=== PATIENT | female | born 1975 | race Caucasian/White ===

== ENCOUNTER 2023-06-28 12:44 | Outpatient (CLI) | payer OTHER, SELFPAY ==
--- NOTE | ~2023-06-28 | CT_ITS ---
EXAMINATION: CT abdomen pelvis wo con DATE: 06/28/2023 13:20 INDICATION: Right kidney stone TECHNIQUE: Computed tomography (CT) of the abdomen and pelvis was performed without intravenous contr ast. Automated exposure control and iterative reconstruction technique were employed. Exam dose: 181 .85 mGy-cm total exam DLP. COMPARISON: 06/2023 KUB FINDINGS: The lung bases are clear. Normal heart size. No pericardial or pleural effusion. Status post bilateral augmentation mammoplasty. The liver, gallbladder, bile ducts, pancreas, pancreatic duct are unremarkable. Multiple splenic calc ified granulomas consistent with old granulomatous disease. No splenomegaly. Normal morphology of the adrenal glands. 2.2 cm right renal cyst. 5 mm and 5.4 mm nonobstructing right renal calculi. No ureteral calculus or hydroureteronephrosis. There is a small locule of gas in the urinary bladder but the bladder is otherwise unremarkable. No bladder wall thickening. Status post hysterectomy. Diverticulosis of the colon; no CT evidence of diverticulitis. No bowel obstruction, bowel wall thick ening, pneumatosis or intraperitoneal free air is detected. There is atherosclerotic calcification but normal caliber of the abdominal aorta and iliac arteries. No intraperitoneal or retroperitoneal or pelvic mass lesion or adenopathy or ascites is detected. No suspicious osteolytic or osteoblastic lesions are noted. Asymmetric prominent right hip osteoarthritis. IMPRESSION: Status post bilateral augmentation mammoplasty 2.2 cm right renal cyst Nonobstructive right nephrolithiasis Status post hysterectomy Diverticulosis of the colon Reviewed, dictated and finalized at [facility]. Reviewed, dictated and finalized at location B.
--- NOTE | ~2023-06-28 | XR_ITS ---
EXAM: XR abdomen/kub 1V DATE: 06/28/2023 13:11 HISTORY: RIGHT KIDNEY STONE . COMPARISON: CT abdomen pelvis, same date. FINDINGS: Clear lung bases. Normal bowel gas pattern. No organomegaly. 5 and 4 mm calcifications pro ject over the right mid renal shadow. Scattered vascular calcifications. Moderate right hip osteoarth ritis. IMPRESSION: Right nephrolithiasis. Moderate right hip osteoarthritis. Reviewed, dictated and finalized at location K.
== END 2023-06-28 12:45 | disposition home or self-care (01) ==
LOC: ANHIMG 12:53
PROVIDERS: Visit Provider Nurse Practitioner Family
DX: N20.0 Calculus of kidney (principal); M16.11 Unilateral primary osteoarthritis, right hip; K57.30 Diverticulosis of large intestine without perforation or abscess without bleeding; N28.1 Cyst of kidney, acquired
CPT/HCPCS: 74018; 74176

== ENCOUNTER 2024-05-14 10:38 | Outpatient (CLI) | payer OTHER, SELFPAY ==
[2024-05-14 12:30] LABS: INR 0.9; Prothrombin Time 12.1 Seconds (11.1-14.7)
[2024-05-14 12:32] LABS: Partial Thromboplastin Time 25.8 Seconds (22.3-36.8)
== END 2024-05-14 10:39 | disposition home or self-care (01) ==
PROVIDERS: Visit Provider Urology
DX: N20.0 Calculus of kidney (principal); E78.00 Pure hypercholesterolemia, unspecified; Z01.818 Encounter for other preprocedural examination
CPT/HCPCS: 36415; 85610; 85730; 87086

== ENCOUNTER 2024-05-17 01:02 | Day surgery (SDC) | payer OTHER, SELFPAY ==
--- NOTE | 2024-03-27 07:32 | PM.HPGS ---
History of Present Illness History of Present Illness Consent: Risks, benefits, and alternatives have been discussed and questions answered. Patient agrees to proceed with procedure. Chief complaint: right renal stone Narrative: Karen Méndez is a 48 year old female who has undergone, for several months, evaluation by Dr. Hola Lamb and OLEG Lee for recurrent urinary tract infections and intermittent dysuria. Imaging in late [address] scan and KUB showed 2 calcified stones in her right kidney, each measuring approximately 5 mm. She elected to defer intervention until now. After discussion of options she is agreed to right ESWL. She is aware of the risks including, but not limited to, need for additional procedures to clear her stones, hematuria, perinephric hematoma. Review of Systems Review of Systems: All systems reviewed & are unremarkable except as noted in HPI and below PMFSH Past Medical History Medical History (Updated 12/21/23 @ 07:25 by Monty العلي MD) Constipation Encounter for screening colonoscopy GERD (gastroesophageal reflux disease) Lupus nephritis Social History Social History Smoking status: Unknown if ever smoked Meds Home Medications and Allergies Home Medications Medication Instructions Recorded Confirmed Type ascorbate calcium (vitamin C) 500 500 mg PO DAILY 12/12/23 12/12/23 History mg tablet aspirin 81 mg tablet,delayed 81 mg PO DAILY 12/12/23 12/12/23 History release (Adult Aspirin Regimen) biotin 5 mg tablet 5 mg PO DAILY 12/12/23 12/12/23 History cholecalciferol (vitamin D3) 25 25 mcg PO DAILY 12/12/23 12/12/23 History mcg (1,000 unit) capsule ezetimibe 10 mg tablet 10 mg PO DAILY 12/12/23 12/12/23 History lisinopril 5 mg tablet 5 mg PO DAILY 12/12/23 12/12/23 History mycophenolate mofetil 500 mg 500 mg PO Q12H 12/12/23 12/12/23 History tablet (CellCept) omeprazole 20 mg capsule,delayed 20 mg PO DAILY 12/12/23 12/12/23 History release plecanatide 3 mg tablet (Trulance) 3 mg PO DAILY 1 month #30 tabs 12/12/23 12/12/23 Rx prednisone 10 mg tablet 10 mg PO DAILY 12/12/23 12/12/23 History rosuvastatin 40 mg tablet 40 mg PO DAILY 12/12/23 12/12/23 History trazodone 50 mg tablet 50 mg PO QHS PRN 12/12/23 12/12/23 History turmeric 400 mg capsule mg PO 12/12/23 12/12/23 History valacyclovir 500 mg tablet 500 mg PO DAILY 12/12/23 12/12/23 History (Valtrex) vit B12 50 mcg-iodine 75 mcg-mag 50 cap PO .qod 12/12/23 12/12/23 History 100 [id number]-herb 193 capsule Allergies Allergy/AdvReac Type Severity Reaction Status Date / Time No Known Allergies Allergy Unverified 12/12/23 14:09 Exam Const: General: no acute distress Resp: Effort & Inspection: normal respiratory effort GI: Inspection: non-distended GI Palp: No abdominal tenderness and No Guarding due to palpation present (GI) Auscultation: normal bowel sounds Assessment and Plan Assessment and plan (1) Right kidney stone: Code(s): N20.0 - Calculus of kidney Status: Acute Assessment and Plan: Right ESWL
[2024-04-01 13:11] VITALS: BMI 25.6
--- NOTE | 2024-04-01 13:20 | PC.NURSE ---
Addendum entered by Bonnie Au RN 04/02/24 14:14: Pt aware not to take any more aspirin (pt had not taken a dose yet today). Original Note: Report to the Outpatient Waiting Room, entrance under the green pavilion located off [facility], at time _0800_ on date _[id number]_. Planned Procedure Time: _1000_. Time changes happen often and if your time is changed the preop area will call you the afternoon before. - You and your visitor will be asked to self-screen and do not enter if you have any COVID symptoms. - A mask is optional within the hospital at this time. Patients may have clear liquids (water, carbonated beverages, clear teas, apple juice) until 3 hours prior to surgery with a maximum of 20 ounces. - No food from midnight until time of surgery Take the following medications with a SIP of water the morning of surgery: __Prednisone DO NOT STOP ANY OF YOUR OTHER PRESCRIPTION MEDICATIONS PRIOR TO SURGERY ?EXCEPT THE FOLLOWING Medications to discontinue per physician All vitamins Date to take last [id number] Please no make-up, nail slovenian, hairspray, perfume, deodorant, or body powder the day of surgery. No jewelry (including any body piercings) or valuables the day of surgery, leave them at home. Please take a shower or bath the night before, or the morning of, surgery with an antibacterial soap. Wear comfortable, loose fitting clothing. - Jewelry must be removed prior to entering the operating room. Rings and piercings that are not removed may be cut off. - The hospital will not accept responsibility for valuables. - Please leave all valuables, including medications, at home the day of surgery. If you are going home after surgery, a licensed package delivery driver must drive you home. - NO public transportation without another adult if you receive anesthesia. - We recommend that an adult stay with you for 24 hours following discharge. - We also recommend that you do not drive, make important decision, drink alcoholic beverages, or take any drugs that were not prescribed by your health care provider for at least 24 hours after your discharge time. Follow any additional instructions given to you from your surgeon. If you or anyone in your household have experienced Covid symptoms in the past week, please notify your surgeon or the nurse liaison at the phone number below for possible testing. Telephone instructions given to _Karen__and asked if any additional questions and then verbalized understanding. Patient advised to call surgeon office or pre surgery nurse liaison [phone] if any additional questions.
--- NOTE | 2024-05-10 07:32 | PM.HPGS ---
History of Present Illness History of Present Illness Consent: Risks, benefits, and alternatives have been discussed and questions answered. Patient agrees to proceed with procedure. Chief complaint: right renal stone Narrative: Karen Méndez is a 48 year old female who has undergone, for several months, evaluation by Dr. Hola Lamb and OLEG Lee for recurrent urinary tract infections and intermittent dysuria. Imaging in late [address] scan and KUB showed 2 calcified stones in her right kidney, each measuring approximately 5 mm. She elected to defer intervention until now. After discussion of options she is agreed to right ESWL. She is aware of the risks including, but not limited to, need for additional procedures to clear her stones, hematuria, perinephric hematoma. This procedure has been put off a couple times for treatment of UTI Review of Systems Cardiovascular: Cardiovascular: Denies chest pain, Denies lightheadedness, Denies palpitations and Denies dyspnea Respiratory: Respiratory: Denies dyspnea Gastrointestinal: Gastrointestinal: Denies diarrhea, Denies nausea and Denies vomiting Genitourinary: Genitourinary: Denies hematuria and Denies dysuria Endocrine: Endocrine: Denies palpitations [facility] Past Medical History Medical History (Updated 12/21/23 @ 07:25 by Monty العلي MD) Constipation Encounter for screening colonoscopy GERD (gastroesophageal reflux disease) Lupus nephritis Social History Social History Smoking status: Never smoker Living arrangements: with family Spiritual care concerns: No Meds Home Medications and Allergies Home Medications Medication Instructions Recorded Confirmed Type ascorbate calcium (vitamin C) 500 500 mg PO DAILY 12/12/23 04/01/24 History mg tablet aspirin 81 mg tablet,delayed 81 mg PO DAILY 12/12/23 04/01/24 History release (Adult Aspirin Regimen) biotin 5 mg tablet 5 mg PO DAILY 12/12/23 04/01/24 History cholecalciferol (vitamin D3) 25 25 mcg PO DAILY 12/12/23 04/01/24 History mcg (1,000 unit) capsule ezetimibe 10 mg tablet 10 mg PO DAILY 12/12/23 04/01/24 History lisinopril 5 mg tablet 5 mg PO DAILY 12/12/23 04/01/24 History mycophenolate mofetil 500 mg 500 mg PO Q12H 12/12/23 04/01/24 History tablet (CellCept) omeprazole 20 mg capsule,delayed 20 mg PO DAILY 12/12/23 04/01/24 History release prednisone 10 mg tablet 10 mg PO DAILY 12/12/23 04/01/24 History rosuvastatin 40 mg tablet 40 mg PO DAILY 12/12/23 04/01/24 History turmeric 400 mg capsule 400 mg PO DAILY 12/12/23 04/01/24 History valacyclovir 500 mg tablet 500 mg PO DAILY 12/12/23 04/01/24 History (Valtrex) vit B12 50 mcg-iodine 75 mcg-mag 50 cap PO .qod 12/12/23 04/01/24 History 100 [id number]-xbsodbks-herb 193 capsule Lactobacillus acidophilus and 1 cap PO DAILY 04/01/24 04/01/24 History rhamnosus 15 billion cell capsule (Flor[employer]) Allergies Allergy/AdvReac Type Severity Reaction Status Date / Time No Known Allergies Allergy Verified 04/01/24 15:57 Exam Const: General: no acute distress Resp: Effort & Inspection: normal respiratory effort GI: Inspection: non-distended GI Palp: No abdominal tenderness and No Guarding due to palpation present (GI) Auscultation: normal bowel sounds Assessment and Plan Assessment and plan (1) Right kidney stone: Code(s): N20.0 - Calculus of kidney Status: Acute Assessment and Plan: Right ESWL
--- NOTE | 2024-05-13 09:49 | PC.NURSE ---
PT DENIES ANY CHANGE IN HEALTH OR MEDICATION, NEW INSTRUCTIONS GIVEN, PT DENIES ANY QUESTIONS.
--- NOTE | 2024-05-13 10:00 | PC.NURSE ---
Report to the Outpatient Waiting Room, entrance under the green pavilion located off [facility], at time _0700___ on date _05/17/24_. Planned Procedure Time: _0900_. Time changes happen often and if your time is changed the preop area will call you the afternoon before. - You and your visitor will be asked to self-screen and do not enter if you have any COVID symptoms. - A mask is optional within the hospital at this time. Patients may have clear liquids (water, carbonated beverages, clear teas, apple juice) until 3 hours prior to surgery with a maximum of 20 ounces. - No food from midnight until time of surgery - Infants may have breast milk until 4 hours before surgery, infant formula 6 hours prior to surgery. - Children will be allowed to drink immediately following surgery. If applicable, please bring a bottle or sippy cup to assist with drinking. Juice, water, soda, and popsicles are readily available. For infants on formula, please bring formula the day of surgery. Pacifiers are allowed. Take the following medications with a SIP of water the morning of surgery: PREDNISONE DO NOT STOP ANY OF YOUR OTHER PRESCRIPTION MEDICATIONS PRIOR TO SURGERY ?EXCEPT THE FOLLOWING Medications to discontinue per physician ____ALL VITAMINS AND SUPPLIMENTS Date to take last dose 05/14/24 STOP ASPIRIN 05/13/24 Please no make-up, nail turkmen, hairspray, perfume, deodorant, or body powder the day of surgery. No jewelry (including any body piercings) or valuables the day of surgery, leave them at home. Please take a shower or bath the night before, or the morning of, surgery with an antibacterial soap. Wear comfortable, loose fitting clothing. Children are encouraged to wear pajamas. - Jewelry must be removed prior to entering the operating room. Rings and piercings that are not removed may be cut off. - The hospital will not accept responsibility for valuables. - Please leave all valuables, including medications, at home the day of surgery. If you are going home after surgery, a licensed skidder driver must drive you home. - NO public transportation without another adult if you receive anesthesia. - We recommend that an adult stay with you for 24 hours following discharge. - We also recommend that you do not drive, make important decision, drink alcoholic beverages, or take any drugs that were not prescribed by your health care provider for at least 24 hours after your discharge time. For Pediatric surgeries, we recommend two adults accompany the child home. Follow any additional instructions given to you from your surgeon. If you or anyone in your household have experienced Covid symptoms in the past week, please notify your surgeon or the nurse liaison at the phone number below for possible testing. Telephone instructions given to PATIENT_and asked if any additional questions and then verbalized understanding. Patient advised to call surgeon office or pre surgery nurse liaison [phone] if any additional questions.
--- NOTE | 2024-05-16 12:15 | WPDANESEPPF ---
Anes - Initial Pre Proc Eval Procedure: Operation Date: 05/17/24 07:30 Proposed Procedures p Right Renal Extracorporeal Shock Wave Lithotripsy - Monty العلي MD Date/Time: 05/16/24 12:15 Surgeon: Monty العلي MD Pre Op Diagnosis: right renal stone Patient Data Age: 48 Gender: F Height: 1.63 m Weight: 67.7 kg Allergies Allergy/AdvReac Type Severity Reaction Status Date / Time No Known Allergies Allergy Verified 04/01/24 15:57 Home Medications Medication Instructions Recorded Confirmed Type ascorbate calcium (vitamin C) 500 500 mg PO DAILY 12/12/23 04/01/24 History mg tablet aspirin 81 mg tablet,delayed 81 mg PO DAILY 12/12/23 04/01/24 History release (Adult Aspirin Regimen) biotin 5 mg tablet 5 mg PO DAILY 12/12/23 04/01/24 History cholecalciferol (vitamin D3) 25 25 mcg PO DAILY 12/12/23 04/01/24 History mcg (1,000 unit) capsule ezetimibe 10 mg tablet 10 mg PO DAILY 12/12/23 04/01/24 History lisinopril 5 mg tablet 5 mg PO DAILY 12/12/23 04/01/24 History mycophenolate mofetil 500 mg 500 mg PO Q12H 12/12/23 04/01/24 History tablet (CellCept) omeprazole 20 mg capsule,delayed 20 mg PO DAILY 12/12/23 04/01/24 History release prednisone 10 mg tablet 10 mg PO DAILY 12/12/23 04/01/24 History rosuvastatin 40 mg tablet 40 mg PO DAILY 12/12/23 04/01/24 History turmeric 400 mg capsule 400 mg PO DAILY 12/12/23 04/01/24 History valacyclovir 500 mg tablet 500 mg PO DAILY 12/12/23 04/01/24 History (Valtrex) vit B12 50 mcg-iodine 75 mcg-mag 50 cap PO .qod 12/12/23 04/01/24 History 100 jd-nfps-wvkszbne-herb 193 capsule Lactobacillus acidophilus and 1 cap PO DAILY 04/01/24 04/01/24 History rhamnosus 15 billion cell capsule (Florajen Women) Patient hx anesthesia problems: none Family hx anesthesia problems: none Results Review: All pre-operative results and documents have been reviewed as part of the pre-operative evaluation. [facility] Past Medical History Medical History (Updated 05/16/24 @ 12:15 by Kwesi Hernandez DO) Anti-cardiolipin antibody syndrome CKD (chronic kidney disease) Constipation Encounter for screening colonoscopy GERD (gastroesophageal reflux disease) Hyperlipidemia Lupus nephritis Surgical History Surgical History (Updated 05/16/24 @ 12:15 by Kwesi Hernandez DO) H/O: hysterectomy Social History Social History Smoking status: Never smoker Living arrangements: with family Spiritual care concerns: No Anes - Eval Final PreProcedure Day of Procedure 05/16/24 12:15 Patient weight: overweight Heart: regular rate and rhythm Lungs: clear to auscultation Airway: Mallampati scale class II Neurological: alert and oriented Last oral intake: >/= 8 hours ASA classification: III Emergent: no Anesthetic plan: proceed Anesthesia type and monitoring: general LMA and standard monitoring Results Review: All pre-operative results and documents have been reviewed as part of the pre-operative evaluation. Informed Consent: The patient's anesthetic plan and its attendant risks and benefits were discussed with the patient/family/POA. Questions were solicited and answers provided to the satisfaction of the patient/family/POA.
[2024-05-17] VITALS (8 sets, daily range): BP systolic 105–126; BP diastolic 68–83; PULSE 42–62; RESP 14–15; TEMP 36.1–37; O2SAT 96–100
--- NOTE | ~2024-05-17 | XR_ITS ---
EXAMINATION: XR abdomen/kub 1V DATE: 05/17/2024 06:39 INDICATION: Kidney stone. TECHNIQUE: A supine view of the abdomen on 2 radiographs was obtained. COMPARISON: CT abdomen and pelvis 06/28/2023 FINDINGS: There are no dilated loops of bowel. There are approximately 3 stones in right kidney measu ring up to 4 mm. IMPRESSION: 1. Right kidney stones. Reviewed, dictated and finalized at location A. IMPRESSION: 1. Right kidney stones.
--- NOTE | 2024-05-17 05:45 | WPDHPUPDATE1 ---
History and Physical Update Update Date/Time: 05/17/24 05:45 History and Physical has been reviewed, including an updated exam of the patient. There are NO changes in the patient's condition. Risks, benefits, and alternatives have been discussed and questions answered. Patient agrees to proceed with procedure.
[2024-05-17] MEDS: LACTATED RINGERS 1,000 ML 30 ML IV CONT (07:00)
[2024-05-17] MEDS: ceFAZolin 2 GM/D5W 50 ML 2 GM/50 ML BAG IVPB (07:25)
--- NOTE | 2024-05-17 07:33 | W.PM.PROC2 ---
Procedure Note - Detailed Date of Procedure 05/17/24 Pre-op Diagnosis Right renal stone Post-op Diagnosis Same Procedure Performed Right ESWL Surgeon Monty العلي MD Anesthesia General Description of Procedure The patient was brought to the operative suite where he was placed in the supine position on the Dornier lithotripsy table. The focal point of the lithotripter was placed at two 4-5mm stones in right kidney. A total of 2500 shocks were delivered at a power setting of 4 - we split the shocks between the two stones. There appeared to be good fragmentation of the stones. The patient tolerated the procedure well and was taken to the recovery room in good condition. Drains No Packing No Pathology None sent Complications No immediate complications Condition Stable Disposition PACU
[2024-05-17] MEDS: KETOROLAC 30 MG/ML VIAL (*BKC) IV PUSH (08:02)
== END 2024-05-17 09:37 | disposition home or self-care (01) ==
PROVIDERS: Visit Provider Urology
PROC: (CPT 50590; principal; 2024-05-17 07:30)
DX: N20.0 Calculus of kidney (principal); E78.5 Hyperlipidemia, unspecified; K21.9 Gastro-esophageal reflux disease without esophagitis; N18.9 Chronic kidney disease, unspecified; D68.61 Antiphospholipid syndrome; Z79.82 Long term (current) use of aspirin; Z79.52 Long term (current) use of systemic steroids
CPT/HCPCS: 50590; 36415; 74018; 85610; 85730; 87086; J0690; J1885; J2250; J2405; J2704; J3010; J7120

== ENCOUNTER 2024-08-13 12:02 | Outpatient (CLI) | payer OTHER, SELFPAY ==
--- NOTE | ~2024-08-13 | XR_ITS ---
XR abdomen/kub 1V Ordering provider: Monty العلي MD History: . HX KIDNEY STONE, PT HAD LITHOTRIPSY DONE . Comparison: May 17, 2024 FINDINGS: BOWEL: Nonobstructive bowel gas pattern. ORGANOMEGALY: None. SIGNIFICANT PATHOLOGIC CALCIFICATIONS: Tiny stone in the right kidney area. OTHER: No free air is seen under the diaphragm. Bilateral calcifications in the pelvis outside the bladder. IMPRESSION: NO ACUTE ABDOMINAL FINDINGS. Stone in the right kidney. Reviewed, dictated and finalized at location A. D [employer]LL[employer] PROCESSOR
== END 2024-08-13 12:03 | disposition home or self-care (01) ==
DX: N20.0 Calculus of kidney (principal)
CPT/HCPCS: 74018

== ENCOUNTER 2025-06-17 10:23 | Outpatient (CLI) | payer OTHER, SELFPAY ==
--- NOTE | ~2025-06-17 | XR_ITS ---
XR abdomen/kub 1V 06/17/2025 10:51 Indication: Right kidney stone Procedure: KUB Comparison: 08/13/2024 Findings: Stable 3 mm right renal stone. Left upper abdominal calcifications, likely calcified granulomas of the spleen. Bowel gas pattern nonobstructive with colonic fecal loading. There are pelvic phleboliths. There is atherosclerosis of the aorta. Impression: 1: Stable right nephrolithiasis. Reviewed, dictated and finalized at location O. Impression: 1: Stable right nephrolithiasis.
--- NOTE | ~2025-06-17 | US_ITS ---
Examination: Ultrasound of the retroperitoneum including kidneys and bladder. Clinical History: chronic cystitis wo hematuria . Comparison: CT abdomen and pelvis 06/28/2023. Findings: Right kidney: 12 cm. Mildly echogenic. No collecting system dilatation. No shadowing calculi. 3.5 cm simple cyst. Left kidney: 12 cm. Mildly echogenic. No collecting system dilatation. No shadowing calculi. 10 mm probable cyst. Urinary bladder: No wall thickening or focal abnormality. IMPRESSION: 1. No acute findings. Reviewed, dictated and finalized at location R. IMPRESSION: 1. No acute findings.
== END 2025-06-17 10:24 | disposition home or self-care (01) ==
LOC: MICIMG 10:24
PROVIDERS: PCP Physician Assistant; Visit Provider Physician Assistant
DX: N20.0 Calculus of kidney (principal)
CPT/HCPCS: 74018; 76770